=== PATIENT | female | born 1995 | race Caucasian/White ===

== ENCOUNTER 2017-03-17 15:33 | Emergency (ER) | payer BC, MEDICAID ==
--- NOTE | 2017-03-17 16:00 | EDPHY ---
H & P Time Seen by Provider: 03/17/17 15:50 HPI/ROS: Chief complaint. Anxiety, left eye blurry HPI. 21-year-old female here by EMS with complaint of nausea, dizziness, blurriness left eye. She felt well this morning and then after lunch began have some nausea and felt dizzy. She had some blurriness in her left eye which she has not had before. She then developed a left-sided headache. Per EMS she was hyperventilating when she they got there. She denies recent head injury or illness. No fever. Denies abdominal pain, chest pain, vomiting or diarrhea. Left headache continues. No focal weakness to arms or legs. She has a history of migraines that have been occurring more frequently recently. ROS Constitutional. no fever/chills, no weakness Eyes. Blurry vision left eye ENT. no sore throat, no nasal drainage Cardiovascular. no chest pain Respiratory. no shortness of breath, no cough Abdominal. no abdominal pain, no nausea/vomiting, no diarrhea . no problems urinating MS. no calf pain/swelling, no neck/back pain, no joint pain Skin. no rash Lymph. no swollen glands Neuro. Left-sided headache, dizzy Past Medical/Surgical History: Past medical history significant for migraines, anxiety, panic attacks, thoracic outlet syndrome Social History: , nonsmoker, no alcohol Smoking Status: Never smoked Physical Exam: General Appearance: Alert well-developed female mild distress vital signs stable Eyes: Pupils equal and round no pallor or injection. No papilledema. No nystagmus. No restriction of gaze ENT, Mouth: Mucous membranes are moist. Respiratory: There are no retractions, lungs are clear to auscultation. Cardiovascular: Regular rate and rhythm. Gastrointestinal: Abdomen is soft and nontender, no masses, bowel sounds normal. Neurological: Awake and alert, sensory and motor exams grossly normal. Speech is normal. Cranial nerves are normal. No pronator drift. Finger-nose and heel- to-may are intact bilat Skin: Warm and dry, no rashes. Musculoskeletal: Neck is supple nontender. Extremities symmetrical, full range of motion. Psychiatric: Patient is oriented X 3, there is no agitation. Constitutional: Initial Vital Signs Temperature (C) 36.9 C 03/17/17 15:33 Heart Rate 96 03/17/17 15:33 Respiratory Rate 16 03/17/17 15:33 Blood Pressure 130/60 H 03/17/17 15:33 O2 Sat (%) 96 03/17/17 15:33 O2 Delivery Mode Room Air Allergies/Adverse Reactions: SUGAR FREE COUGH SYRUP Allergy (Uncoded 03/17/17 15:43) Home Medications: Medication Instructions Recorded Zoloft 03/17/17 Medical Decision Making - Diagnostics Imaging Results: Imaging Impressions Head CT 03/17/17 16:17 Impression: Normal noncontrast CT of the brain. Results called to Dr. Leandro Romero at 4:45 PM at the time of the interpretation. Procedures: IV normal saline. Benadryl Reglan for headache. ED Course/Re-evaluation: Patient reports that her vision is returning to normal Re-evaluation 5:05 p.m.. Patient no longer has any headache. She has normal neurologic exam. She tells me she has a slight residual spot in her left eye. The patient and her family and I discussed imaging studies we discussed treatment plan including criteria for return importance of follow-up and further evaluation. I have encouraged her follow up with her regular PCP as her migraines are increasing in frequency. I have encouraged her to return tomorrow for any continuing eye symptoms to perform MRI. She expresses understanding and agreement Differential Diagnosis: I think this likely migraine causing her blurry vision in the left eye. She has developed the blurriness and then subsequently left-sided headache. She has a normal neurologic exam. She has a normal head CT. Her symptoms have resolved with normal migraine headache medication. She has a normal eye exam. There is no evidence for intracranial bleeding or CVA. - Data Points Medications Given: Discontinued Medications Diphenhydramine HCl (Benadryl Injection) 12.5 mg IVP EDNOW ONE Stop: 03/17/17 16:18 Last Admin: 03/17/17 16:26 Dose: 12.5 mg Ketorolac Tromethamine (Toradol) 30 mg IVP EDNOW ONE Stop: 03/17/17 16:18 Last Admin: 03/17/17 16:26 Dose: 30 mg Metoclopramide HCl (Reglan Injection) 10 mg IVP EDNOW ONE Stop: 03/17/17 16:18 Last Admin: 03/17/17 16:26 Dose: 10 mg Departure - Departure Disposition: Home, Routine, Self-Care Clinical Impression: Migraine headache Qualifiers: Migraine type: with aura Status migrainosus presence: without status migrainosus Intractability: not intractable Qualified Code(s): G43.109 - Migraine with aura, not intractable, without status migrainosus Condition: Good Instructions: Migraine Headache (ED) Additional Instructions: Return tomorrow for any continuing visual change for MRI. Follow up with your regular physician in [place] in the next few days for further evaluation and treatment of her migraines. Return tonight for worsening symptoms Referrals: Patient,NotPresent [Unknown] - As per Instructions
[2017-03-17] MEDS ORDERED: KETOROLAC 30 MG/1 ML SDV IVP ONE (16:17)
[2017-03-17] MEDS ORDERED: METOCLOPRAMIDE 10 MG/2 ML VIAL IVP ONE (16:17)
[2017-03-17 17:16] VITALS: BP 128/67; PULSE 81; RESP 18; TEMP 98.1; O2SAT 95
== END 2017-03-17 17:24 | disposition home or self-care (01) ==
DX: G43.109 Migraine with aura, not intractable, without status migrainosus (principal)
CPT/HCPCS: 96374; J1200; J1885; J2765

== ENCOUNTER 2017-07-28 21:23 | Emergency (ER) | payer BC, MEDICAID ==
[2017-07-28 21:46] VITALS: O2SAT 94
[2017-07-28 22:17] LABS: % IMMATURE GRANULYOCYTES 0.3 % (0.0-1.1); ABSOLUTE IMMATURE GRANULOCYTES 0.03 10^3/uL (0.00-0.10); ADD DIFF? NO; ADD MORPH? NO; ADD SCAN? NO; ATYPICAL LYMPHOCYTE FLAG 10 (0-99); FRAGMENT RBC FLAG 0 (0-99); HEMATOCRIT 44.5 % (38.0-47.0); HEMOGLOBIN 15.3 g/dL (12.6-16.3); LEFT SHIFT FLG 0 (0-99); LIPEMIA HEMOLYSIS FLAG 90 (0-99); MEAN CELL HEMOGLOBIN 28.5 pg (27.9-34.1); MEAN CELL HEMOGLOBIN CONCENTR. 34.4 g/dL (32.4-36.7); MEAN CELL VOLUME 82.9 fL (81.5-99.8); MEAN PLATELET VOLUME 10.4 fL (8.7-11.7); PLATELET CLUMPS FLAG 0 (0-99); PLATELET COUNT 276 10^3/uL (150-400); RED BLOOD CELL COUNT 5.37 10^6/uL (4.18-5.33); RED CELL DISTRIBUTION WIDTH 12.8 % (11.5-15.2)
[2017-07-28 22:40] LABS: ANION GAP 14 mEq/L (8-16); CALCIUM 9.4 mg/dL (8.5-10.4); CARBON DIOXIDE 24 mEq/l (22-31); CHLORIDE 102 mEq/L (97-110); CREATININE 0.8 mg/dL (0.6-1.0); ETHANOL SERUM < 10 mg/dL (0-10); GLOMERULAR FILTRATION RATE > 60; GLUCOSE 82 mg/dL (70-100); POTASSIUM 3.8 mEq/L (3.5-5.2); SODIUM 140 mEq/L (134-144)
--- NOTE | 2017-07-28 23:18 | EDPHY ---
H & P Stated Complaint: recent severe depression, now suicidal ideation - Medical/Surgical History Hx Asthma: No Hx Chronic Respiratory Disease: No Hx Diabetes: No Hx Cardiac Disease: No Hx Renal Disease: No Hx Cirrhosis: No Hx Alcoholism: No Hx HIV/AIDS: No Hx Splenectomy or Spleen Trauma: No Other PMH: depression/ANXIETY, PANIC ATTACKS, THORASIC OUTLET SYNDROMe - Social History Smoking Status: Never smoked HPI/ROS: Chief complaint: Suicidal ideation History of present illness: This is a 21-year-old female who brought herself to the emergency department for suicidal ideation. She reports a history of depression. She feels it has been worsening lately and over the last week she has started to have thoughts of killing herself. She plans on cutting her wrists. She does states she got as far as running a hot bath to do this the other day. She reports multiple factors affecting this: She was on Zoloft previously but that was making her very dizzy so she was taken off of it and is not currently being treated with any medications. She did have a therapist but her insurance has changed and she is no longer able to see her therapist. Further she is dealing with the of a friend from last winter and this is the 1st holiday season after the which is making it hard for her to cope. She denies homicidal ideation. She denies illness or injury. Review of systems: A 10 point review of systems was obtained and other than described above was negative. (Omar Patrick) - Physical Exam Exam: General Appearance: Alert, nontoxic. Eyes: Pupils equal and round no pallor or injection. ENT, Mouth: Mucous membranes moist. Respiratory: There are no retractions, lungs are clear to auscultation. Cardiovascular: Regular rate and rhythm. Gastrointestinal: Abdomen is soft and non tender, no masses, bowel sounds normal. Neurological: Alert. Cranial nerves 2-12 grossly intact. Strength and sensation intact and symmetrical. Skin: Warm and dry, no rashes. Musculoskeletal: Neck is supple non tender. Extremities are symmetrical, full range of motion. Psychiatric: Patient is oriented X 3, there is no agitation. (Omar Patrick) Constitutional: Initial Vital Signs Temperature (C) 37 C 07/28/17 21:44 Heart Rate 80 07/28/17 21:44 Respiratory Rate 18 07/28/17 21:44 Blood Pressure 155/74 H 07/28/17 21:44 O2 Sat (%) 94 07/28/17 21:44 O2 Delivery Mode Room Air Allergies/Adverse Reactions: onion Allergy (Verified 07/28/17 21:46) SUGAR FREE COUGH SYRUP Allergy (Uncoded 07/28/17 21:46) Home Medications: Medication Instructions Recorded Zoloft 03/17/17 Medical Decision Making ED Course/Re-evaluation: Patient seen under the supervision of my secondary supervising physician Dr. Luis De La Paz. Patient presents to the emergency department for suicidal ideation with plan. She is nontoxic. Medically evaluated and cleared for psychiatric evaluation. This is pending at time of dictation. Care of patient turned over to my attending physician Dr. De La Paz at end of shift. (Omar Patrick) 0100 care assumed by me pending mental health evaluation. 0700 patient signed out to Dr. Escobedo pending mental health evaluation. There have been no issues during my care of this patient overnight. (Luis Marti) I assumed care of this patient from Dr. Marti at 7:00 a.m.. At 7:45 a.m. I am notified by the [facility] evaluate her that she is appropriate for outpatient follow- up. She has been a patient at [facility] in the past and will resume care with them. She is not currently suicidal. She does not meet criteria for inpatient care. She will be discharged from the emergency department. (Dang Escobedo) Differential Diagnosis: Included but not limited to anxiety, depression, bipolar, schizophrenia, substance abuse (Omar Patrick) - Data Points Laboratory Results: Laboratory Results 07/28/17 22:05 07/28/17 22:05 07/28/17 07/28/17 07/28/17 22:10 22:05 22:05 WBC RBC Hgb Hct MCV MCH MCHC RDW Plt Count MPV Neut % (Auto) Lymph % (Auto) Platte % (Auto) Eos % (Auto) Baso % (Auto) Nucleat RBC Rel Count Absolute Neuts (auto) Absolute Lymphs (auto) Absolute Monos (auto) Absolute Eos (auto) Absolute Basos (auto) Absolute Nucleated RBC Immature Gran % Immature Gran # Sodium 140 mEq/L mEq/L (134-144) Potassium 3.8 mEq/L mEq/L (3.5-5.2) Chloride 102 mEq/L mEq/L (97-110) Carbon Dioxide 24 mEq/l mEq/l (22-31) Anion Gap 14 mEq/L mEq/L (8-16) BUN 13 mg/dL mg/dL (7-23) Creatinine 0.8 mg/dL mg/dL (0.6-1.0) Estimated GFR > 60 Glucose 82 mg/dL mg/dL (70-100) Calcium 9.4 mg/dL mg/dL (8.5-10.4) Beta HCG, Qual NEGATIVE Urine Opiates Screen NEGATIVE (NEGATIVE) Urine Barbiturates NEGATIVE (NEGATIVE) Ur Phencyclidine Scrn NEGATIVE (NEGATIVE) Ur Amphetamine Screen NEGATIVE (NEGATIVE) U Benzodiazepines Scrn NEGATIVE (NEGATIVE) Urine Cocaine Screen NEGATIVE (NEGATIVE) U Marijuana (THC) Screen NEGATIVE (NEGATIVE) Ethyl Alcohol < 10 mg/dL mg/dL (0-10) 07/28/17 22:05 WBC 11.27 10^3/uL H 10^3/uL (3.80-9.50) RBC 5.37 10^6/uL H 10^6/uL (4.18-5.33) Hgb 15.3 g/dL g/dL (12.6-16.3) Hct 44.5 % % (38.0-47.0) MCV 82.9 fL fL (81.5-99.8) MCH 28.5 pg pg (27.9-34.1) MCHC 34.4 g/dL g/dL (32.4-36.7) RDW 12.8 % % (11.5-15.2) Plt Count 276 10^3/uL 10^3/uL (150-400) MPV 10.4 fL fL (8.7-11.7) Neut % (Auto) 50.2 % % (39.3-74.2) Lymph % (Auto) 38.1 % % (15.0-45.0) Platte % (Auto) 7.5 % % (4.5-13.0) Eos % (Auto) 3.3 % % (0.6-7.6) Baso % (Auto) 0.6 % % (0.3-1.7) Nucleat RBC Rel Count 0.0 % % (0.0-0.2) Absolute Neuts (auto) 5.66 10^3/uL 10^3/uL (1.70-6.50) Absolute Lymphs (auto) 4.29 10^3/uL H 10^3/uL (1.00-3.00) Absolute Monos (auto) 0.85 10^3/uL H 10^3/uL (0.30-0.80) Absolute Eos (auto) 0.37 10^3/uL 10^3/uL (0.03-0.40) Absolute Basos (auto) 0.07 10^3/uL 10^3/uL (0.02-0.10) Absolute Nucleated RBC 0.00 10^3/uL 10^3/uL (0-0.01) Immature Gran % 0.3 % % (0.0-1.1) Immature Gran # 0.03 10^3/uL 10^3/uL (0.00-0.10) Sodium Potassium Chloride Carbon Dioxide Anion Gap BUN Creatinine Estimated GFR Glucose Calcium Beta HCG, Qual Urine Opiates Screen Urine Barbiturates Ur Phencyclidine Scrn Ur Amphetamine Screen U Benzodiazepines Scrn Urine Cocaine Screen U Marijuana (THC) Screen Ethyl Alcohol Departure - Departure Disposition: Home, Routine, Self-Care Clinical Impression: Suicidal ideation Condition: Good Instructions: Suicide Prevention for Adults (ED) Additional Instructions: Follow up at [facility] as planned. Seek help return to the emergency department if you have thoughts of harming yourself. Referrals: [facility] [Other] - As per Instructions [facility] [Outside] - As per Instructions
[2017-07-29 07:54] VITALS: BP 125/76; PULSE 79; RESP 15; TEMP 98.7
== END 2017-07-29 07:54 | disposition home or self-care (01) ==
DX: R45.851 Suicidal ideations (principal)
CPT/HCPCS: 80305; G0480